=== PATIENT | female | born 1985 | race Hispanic/Latino ===

== ENCOUNTER 2021-10-04 00:19 | Emergency (ER) | payer SELFPAY ==
[2021-10-04 03:52] VITALS: BP 132/81
== END 2021-10-04 03:30 | disposition left against medical advice (07) ==
LOC: ED 00:19
DX: F41.0 Panic disorder [episodic paroxysmal anxiety] (principal); Z53.21 Procedure and treatment not carried out due to patient leaving prior to being seen by health care provider